=== PATIENT | female | born 1985 | race Two or more races ===

== ENCOUNTER 2018-01-09 00:17 | Emergency (ER) | payer MEDICAID ==
[~2018-01-09] VITALS: Ht 165.1 cm; Wt 113.4 kg
--- NOTE | 2018-01-09 00:49 | NUR ---
Dr. Radha SCHAFER MD at bedside for MSE.
[2018-01-09] MEDS ORDERED: ACETAMINOPHEN ES 500 MG TABLET ONE (00:59)
[2018-01-09] MEDS ORDERED: ACETAMINOPHEN ES 500 MG TABLET PO ONE (01:00)
[2018-01-09 01:06] VITALS: BP 118/64
--- NOTE | 2018-01-09 01:06 | NUR ---
Patient discharged to home in stable conditon. Written and verbal after care instructions given. Patient verbalizes understanding of instructions.
== END 2018-01-09 01:07 | disposition home or self-care (01) ==
LOC: ER 00:25
DX: H92.02 Otalgia, left ear (principal)
CPT/HCPCS: A4663; A9150

== ENCOUNTER 2018-06-13 00:31 | Emergency (ER) | END 2018-06-13 02:15 | disposition home or self-care (01) | DX: K80.70 Calculus of gallbladder and bile duct without cholecystitis without obstruction (principal); Z87.442 Personal history of urinary calculi | CPT/HCPCS: 36415; 76705; 80048; 80076; 83690; 84702; 85025; 96374; 96375; 99284; J1170; J1885; J2405 ==

== ENCOUNTER 2019-03-27 07:40 | Emergency (ER) | payer MEDICAID ==
[~2019-03-27] VITALS: Ht 165.1 cm; Wt 88.5 kg
[2019-03-27] MEDS ORDERED: HYDR-3326 PO (08:06)
--- NOTE | 2019-03-27 08:21 | NUR ---
at bedside to see and examine patient.
[2019-03-27] MEDS ORDERED: HYDROMORPHONE 1 MG/1 ML DISP.SYRIN IV ONE (08:30)
[2019-03-27] MEDS ORDERED: KETOROLAC TROMETHAMINE 30 MG INJ IVP ONE (08:30)
[2019-03-27] MEDS ORDERED: ONDANSETRON 4 MG/2 ML VIAL IV ONE (08:30)
[2019-03-27] MEDS ORDERED: IV NORMAL SALINE 1000 ML BAG IV ONE (08:30)
[2019-03-27] MEDS ORDERED: KETOROLAC TROMETHAMINE 30 MG INJ ONE (08:33)
[2019-03-27] MEDS ORDERED: HYDROMORPHONE 1 MG/1 ML DISP.SYRIN ONE (08:34)
[2019-03-27] MEDS ORDERED: ONDANSETRON 4 MG/2 ML VIAL ONE (08:34)
[2019-03-27 08:47] LABS: BASOPHILS % (AUTO) 0.3 % (0.0-2.0); EOSINOPHILS # (AUTO) 0.1 K/uL (0.0-0.7); EOSINOPHILS % (AUTO) 2.1 % (0.0-7.0); HEMATOCRIT 38.4 % (31.2-41.9); HEMOGLOBIN 12.7 g/dL (10.9-14.3); LYMPHOCYTES # (AUTO) 1.7 K/uL (20.0-40.0); LYMPHOCYTES % (AUTO) 23.6 % (20.5-51.5); MEAN CORPUSCULAR HEMOGLOBIN 30.2 uug (24.7-32.8); MEAN CORPUSCULAR HGB CONC 33 g/dL (32.3-35.6); MEAN CORPUSCULAR VOLUME 91.5 fL (75.5-95.3); MONOCYTES # (AUTO) 0.3 K/uL (2.0-10.0); MONOCYTES % (AUTO) 4.6 % (0.0-11.0); NEUTROPHILS # (AUTO) 4.9 K/uL (1.8-8.9); NEUTROPHILS % (AUTO) 69.4 % (38.5-71.5); PLATELET COUNT (AUTO) 169 K/uL (179-408)
[2019-03-27 08:56] LABS: CREATININE 0.7 mg/dL (0.6-1.3); POTASSIUM 4.3 mmol/L (3.5-5.1)
[2019-03-27 09:02] LABS: BILIRUBIN,DIRECT 0.1 mg/dL (0.0-0.2); BILIRUBIN,TOTAL 0.3 mg/dL (0.2-1.0); TOTAL PROTEIN, SERUM 6.1 g/dL (6.4-8.2)
--- NOTE | 2019-03-27 09:32 | NUR ---
dcd instructions given to patient who verbalized understanding., pt left room AAOX4. vitasls: 101/63 HR of 52 0/10 pain. no nausea well controlled no vomiting and pt. tolerating po intake. Addendum: 03/27/19 at 0934 by GMATEOS pt. accompanied by tate the whole time.
== END 2019-03-27 09:41 | disposition home or self-care (01) ==
LOC: ER 07:40
DX: K80.50 Calculus of bile duct without cholangitis or cholecystitis without obstruction (principal); Z79.899 Other long term (current) drug therapy
CPT/HCPCS: 36415; 80048; 80076; 83690; 84702; 85025; 96374; 96375; 99283; J1170; J1885; J2405; A4663; J7030

== ENCOUNTER 2019-08-02 13:59 | Emergency (ER) | payer MEDICAID ==
[~2019-08-02] VITALS: Ht 165.1 cm; Wt 54.4 kg
[2019-08-02] MEDS ORDERED: KETOROLAC TROMETHAMINE 15 MG INJ IVP ONE (14:30)
[2019-08-02] MEDS ORDERED: ONDANSETRON 4 MG/2 ML VIAL IV ONE (14:30)
[2019-08-02] MEDS ORDERED: KETOROLAC TROMETHAMINE 15 MG INJ ONE (14:35)
[2019-08-02] MEDS ORDERED: ONDANSETRON 4 MG/2 ML VIAL ONE (14:35)
[2019-08-02 14:57] LABS: BILIRUBIN,DIRECT 0.1 mg/dL (0.0-0.2); BILIRUBIN,TOTAL 0.2 mg/dL (0.2-1.0); CREATININE 0.8 mg/dL (0.6-1.3); POTASSIUM 3.9 mmol/L (3.5-5.1); TOTAL PROTEIN, SERUM 7.1 g/dL (6.4-8.2)
[2019-08-02 15:01] LABS: *BILIRUBIN,URIN NEGATIVE (NEGATIVE); *BLOOD, URINE NEGATIVE (NEGATIVE); *CLARITY,URINE CLEAR (CLEAR); *COLOR,URINE YELLOW (YELLOW); *KETONES,URINE NEGATIVE (NEGATIVE); *UROBILINOGEN,URINE 0.2 E.U./dl (NORMAL); LEUKOCYTE ESTERASE ,URINE NEGATIVE (NEGATIVE); NITRITE, URINE NEGATIVE (NEGATIVE); UGLUCOSE NEGATIVE (NEGATIVE)
[2019-08-02 15:11] LABS: BASOPHILS % (AUTO) 0.4 % (0.0-2.0); EOSINOPHILS # (AUTO) 0.1 K/uL (0.0-0.7); EOSINOPHILS % (AUTO) 2.1 % (0.0-7.0); HEMATOCRIT 41.2 % (31.2-41.9); HEMOGLOBIN 13.8 g/dL (10.9-14.3); LYMPHOCYTES # (AUTO) 2.7 K/uL (20.0-40.0); LYMPHOCYTES % (AUTO) 40.6 % (20.5-51.5); MEAN CORPUSCULAR HEMOGLOBIN 30.3 uug (24.7-32.8); MEAN CORPUSCULAR HGB CONC 33 g/dL (32.3-35.6); MEAN CORPUSCULAR VOLUME 90.8 fL (75.5-95.3); MONOCYTES # (AUTO) 0.4 K/uL (2.0-10.0); MONOCYTES % (AUTO) 5.7 % (0.0-11.0); NEUTROPHILS # (AUTO) 3.4 K/uL (1.8-8.9); NEUTROPHILS % (AUTO) 51.2 % (38.5-71.5); PLATELET COUNT (AUTO) 232 K/uL (179-408); RED BLOOD CELL COUNT(AUTO) 4.54 MIL/uL (3.63-4.92); WHITE BLOOD COUNT (AUTO) 6.7 K/uL (3.8-11.8)
[2019-08-02 15:11] LABS: *URINE HCG, QUAL NEGATIVE (NEGATIVE)
[2019-08-02 16:08] VITALS: BP 110/61
--- NOTE | 2019-08-02 16:08 | NUR ---
Patient discharged to home in stable conditon. Written and verbal after care instructions given. Patient verbalizes understanding of instructions.PT WALKS IN STEADY GAIT.
== END 2019-08-02 16:11 | disposition home or self-care (01) ==
LOC: ER 13:59
DX: K80.20 Calculus of gallbladder without cholecystitis without obstruction (principal)
CPT/HCPCS: 36415; 76705; 80048; 80076; 81001; 83690; 84703; 85025; 96374; 99284; J1885; J2405; A4663

== ENCOUNTER 2019-11-19 00:53 | Emergency (ER) | payer MEDICAID ==
[~2019-11-19] VITALS: Ht 165.1 cm; Wt 80.7 kg
[~2019-11-19 00:53] MED LIST: HYDR-3326 PO
[2019-11-19] MEDS ORDERED: METF-440 PO (01:07)
[2019-11-19] MEDS ORDERED: MULT-1275 PO (01:07)
--- NOTE | 2019-11-19 01:18 | NUR ---
Dr. Ye at bedside for MSE.
[2019-11-19] MEDS ORDERED: ONDANSETRON 4 MG/2 ML VIAL ONE (01:24)
[2019-11-19] MEDS ORDERED: KETOROLAC TROMETHAMINE 30 MG INJ ONE (01:24)
[2019-11-19] MEDS ORDERED: IV NORMAL SALINE 1000 ML BAG IV ONE (01:30)
[2019-11-19] MEDS ORDERED: ONDANSETRON 4 MG/2 ML VIAL IV ONE (01:30)
[2019-11-19] MEDS ORDERED: KETOROLAC TROMETHAMINE 15 MG INJ IVP ONE (01:30)
[2019-11-19 01:37] LABS: BASOPHILS % (AUTO) 0.6 % (0.0-2.0); EOSINOPHILS # (AUTO) 0.2 K/uL (0.0-0.7); EOSINOPHILS % (AUTO) 2.5 % (0.0-7.0); HEMATOCRIT 38.9 % (31.2-41.9); HEMOGLOBIN 13.2 g/dL (10.9-14.3); LYMPHOCYTES # (AUTO) 2.7 K/uL (20.0-40.0); LYMPHOCYTES % (AUTO) 37.2 % (20.5-51.5); MEAN CORPUSCULAR HEMOGLOBIN 30.8 uug (24.7-32.8); MEAN CORPUSCULAR HGB CONC 34 g/dL (32.3-35.6); MEAN CORPUSCULAR VOLUME 90.7 fL (75.5-95.3); MONOCYTES # (AUTO) 0.3 K/uL (2.0-10.0); MONOCYTES % (AUTO) 3.9 % (0.0-11.0); NEUTROPHILS # (AUTO) 4.1 K/uL (1.8-8.9); NEUTROPHILS % (AUTO) 55.8 % (38.5-71.5); PLATELET COUNT (AUTO) 188 K/uL (179-408); RED BLOOD CELL COUNT(AUTO) 4.28 MIL/uL (3.63-4.92); WHITE BLOOD COUNT (AUTO) 7.3 K/uL (3.8-11.8)
[2019-11-19 01:44] LABS: CARBON DIOXIDE 25 mmol/L (21-32); CHLORIDE 105 mmol/L (98-107); GLUCOSE 133 mg/dL (74-106); POTASSIUM 3.2 mmol/L (3.5-5.1); UREA NITROGEN, BLOOD 25 mg/dL (7-18)
[2019-11-19 01:50] LABS: ALANINE AMINOTRANSFERASE 19 U/L (14-59); ALKALINE PHOSPHATASE 54 U/L (50-136); ASPARTATE AMINOTRANSFERASE 15 U/L (15-37); BILIRUBIN,DIRECT 0.1 mg/dL (0.0-0.2); BILIRUBIN,TOTAL 0.4 mg/dL (0.2-1.0); LIPASE 166 U/L (73-393)
[2019-11-19] MEDS ORDERED: POTASSIUM CHLORIDE 20 MEQ TAB.PRT.SR PO ONE (02:15)
[2019-11-19] MEDS ORDERED: POTASSIUM CHLORIDE 20 MEQ TAB.PRT.SR ONE (02:20)
--- NOTE | 2019-11-19 02:25 | NUR ---
Patient discharged to home in stable condition. Written and verbal after care instructions given. Patient verbalizes understanding of instructions. Stressed follow up or return to ER for worsening s/s. Patient out of ER with steady gait, no acute signs of distress, VSS, all belongings taken, IV site discontinued.
[2019-11-19 02:26] VITALS: BP 110/60
== END 2019-11-19 02:27 | disposition home or self-care (01) ==
LOC: ER 00:55
DX: R10.2 Pelvic and perineal pain (principal); R11.0 Nausea; E87.6 Hypokalemia; E11.9 Type 2 diabetes mellitus without complications; Z79.84 Long term (current) use of oral hypoglycemic drugs
CPT/HCPCS: 36415; 80048; 80076; 83690; 84702; 85025; 96361; 96374; 96375; 99284; J1885; J2405; A4663; J7030

== ENCOUNTER 2019-12-14 22:32 | Emergency (ER) | payer MEDICAID ==
[~2019-12-14] VITALS: Ht 165.1 cm; Wt 72.6 kg
[~2019-12-14 22:32] MED LIST changes: -HYDR-3326 PO; +METF-440 PO; +MULT-1275 PO
--- NOTE | 2019-12-14 22:56 | NUR ---
Radiology notified that patient needs JERROD. Pending JERROD
--- NOTE | 2019-12-14 22:58 | NUR ---
Dr. Deluca at bedside for MSE.
[2019-12-14] MEDS ORDERED: ONDANSETRON 4 MG/2 ML VIAL IV ONE (23:00)
[2019-12-14] MEDS ORDERED: MORPHINE SULFATE 4 MG/1 ML DISP.SYRIN IV ONE (23:00)
[2019-12-14 23:04] LABS: *BILIRUBIN,URIN NEGATIVE (NEGATIVE); *BLOOD, URINE NEGATIVE (NEGATIVE); *CLARITY,URINE CLEAR (CLEAR); *COLOR,URINE YELLOW (YELLOW); *KETONES,URINE NEGATIVE (NEGATIVE); *UROBILINOGEN,URINE 0.2 E.U./dl (NORMAL); LEUKOCYTE ESTERASE ,URINE NEGATIVE (NEGATIVE); NITRITE, URINE NEGATIVE (NEGATIVE); PH,URINE 5.5 (5.0-8.0); UGLUCOSE NEGATIVE (NEGATIVE)
[2019-12-14 23:05] LABS: *URINE HCG, QUAL NEGATIVE (NEGATIVE)
[2019-12-14 23:19] LABS: POTASSIUM 4.3 mmol/L (3.5-5.1)
[2019-12-14 23:20] LABS: BASOPHILS % (AUTO) 0.7 % (0.0-2.0); EOSINOPHILS # (AUTO) 0.1 K/uL (0.0-0.7); EOSINOPHILS % (AUTO) 1.8 % (0.0-7.0); HEMOGLOBIN 14.5 g/dL (10.9-14.3); LYMPHOCYTES # (AUTO) 2.8 K/uL (20.0-40.0); LYMPHOCYTES % (AUTO) 39.5 % (20.5-51.5); MEAN CORPUSCULAR HEMOGLOBIN 30.5 uug (24.7-32.8); MEAN CORPUSCULAR HGB CONC 34 g/dL (32.3-35.6); MEAN CORPUSCULAR VOLUME 90.6 fL (75.5-95.3); MONOCYTES # (AUTO) 0.4 K/uL (2.0-10.0); MONOCYTES % (AUTO) 6.2 % (0.0-11.0); NEUTROPHILS # (AUTO) 3.7 K/uL (1.8-8.9); NEUTROPHILS % (AUTO) 51.8 % (38.5-71.5); PLATELET COUNT (AUTO) 217 K/uL (179-408); RED BLOOD CELL COUNT(AUTO) 4.75 MIL/uL (3.63-4.92); WHITE BLOOD COUNT (AUTO) 7.1 K/uL (3.8-11.8)
[2019-12-14] MEDS ORDERED: MORPHINE SULFATE 4 MG/1 ML DISP.SYRIN ONE (23:20)
[2019-12-14] MEDS ORDERED: ONDANSETRON 4 MG/2 ML VIAL ONE (23:21)
[2019-12-14 23:26] LABS: BILIRUBIN,DIRECT 0.1 mg/dL (0.0-0.2); BILIRUBIN,TOTAL 0.3 mg/dL (0.2-1.0); TOTAL PROTEIN, SERUM 7.3 g/dL (6.4-8.2)
--- NOTE | 2019-12-14 23:32 | NUR ---
JERROD Durham at bedside.
[2019-12-15] MEDS ORDERED: MORPHINE SULFATE 4 MG/1 ML DISP.SYRIN IV ONE (00:15)
[2019-12-15] MEDS ORDERED: MORPHINE SULFATE 4 MG/1 ML DISP.SYRIN ONE (00:28)
--- NOTE | 2019-12-15 00:50 | NUR ---
Dr. Deluca performed pelvic exam. Chaperoned by Mitchell ACEVEDO.
--- NOTE | 2019-12-15 01:10 | NUR ---
Patient cleared for DC. Patient discharged to home in stable condition. Written and verbal after care instructions given. Patient verbalizes understanding of instructions. Stressed follow up or return to ER for worsening s/s. IV removed. Catheter intact and site benign. Pressure and 4x4 gauze applied to site. No bleeding noted. Pt discharged to home in stable condition. Ambulated out of ER in steady gait. Partner will take patient home
[2019-12-15 01:37] VITALS: BP 101/70
== END 2019-12-15 01:10 | disposition home or self-care (01) ==
LOC: ER 22:33
DX: K80.20 Calculus of gallbladder without cholecystitis without obstruction (principal); Z87.891 Personal history of nicotine dependence
CPT/HCPCS: 36415; 76705; 80048; 80076; 81001; 83690; 84703; 85025; 85730; 86850; 86900; 86901; 96374; 96375; 99284; J2270; J2405; A4663

== ENCOUNTER 2020-04-20 10:28 | Emergency (ER) | payer MEDICAID ==
[~2020-04-20] VITALS: Ht 165.1 cm; Wt 86.2 kg
--- NOTE | 2020-04-20 10:50 | NUR ---
pt already involved jethro.
--- NOTE | 2020-04-20 10:57 | NUR ---
Patient discharged to home in stable condition. Written and verbal after care instructions given. Patient verbalizes understanding of instructions. Stressed follow up or return to ER for worsening s/s.
== END 2020-04-20 10:57 | disposition home or self-care (01) ==
LOC: ER 10:28
DX: S00.83XA Contusion of other part of head, initial encounter (principal); Y04.2XXA Assault by strike against or bumped into by another person, initial encounter; Y92.89 Other specified places as the place of occurrence of the external cause; S43.102A Unspecified dislocation of left acromioclavicular joint, initial encounter; S40.022A Contusion of left upper arm, initial encounter; S03.40XA Sprain of jaw, unspecified side, initial encounter; Z33.1 Pregnant state, incidental
CPT/HCPCS: A4663

== ENCOUNTER 2024-03-23 16:42 | Emergency (ER) | payer MEDICAID, OTHER ==
[~2024-03-23] VITALS: Ht 165.1 cm; Wt 97.5 kg
[~2024-03-23 16:42] MED LIST changes: +CEPH500T PO; +DICY20TA11 PO; +HYDR-4209 PO; +ONDA4TAB5 PO; +SULF1TAB48 PO
[2024-03-23] MEDS ORDERED: ASPIRIN 81 MG TAB.CHEW ONE (18:41)
[2024-03-23] MEDS ORDERED: CLONAZEPAM 0.5 MG TABLET ONE (18:42)
[2024-03-23] MEDS ORDERED: HYDROCODONE/APAP 5-325MG TABLET ONE (18:43)
[2024-03-23] MEDS: ASPIRIN 81 MG TAB.CHEW PO ONE (18:46)
[2024-03-23] MEDS: CLONAZEPAM 0.5 MG TABLET PO ONE (18:46)
[2024-03-23] MEDS: HYDROCODONE/APAP 5-325MG TABLET PO ONE (18:47)
[2024-03-23 18:58] LABS: BASOPHILS # (AUTO) 0.1 K/UL (0.0-0.2); CALCIUM 8.7 mg/dL (8.5-10.1); CARBON DIOXIDE 23 mmol/L (21-32); CHLORIDE 104 mmol/L (98-107); CREATININE 0.8 mg/dL (0.6-1.3); EOSINOPHILS # (AUTO) 0.2 K/uL (0.0-0.7); EOSINOPHILS % (AUTO) 2.5 % (0.0-7.0); GLUCOSE 93 mg/dL (74-106); HEMATOCRIT 39.7 % (31.2-41.9); HEMOGLOBIN 13.4 g/dL (10.9-14.3); LYMPHOCYTES # (AUTO) 2.6 K/uL (0.8-4.8); LYMPHOCYTES % (AUTO) 35.4 % (20.5-51.5); MEAN CORPUSCULAR HEMOGLOBIN 29.5 uug (24.7-32.8); MEAN CORPUSCULAR HGB CONC 34 g/dL (32.3-35.6); MEAN CORPUSCULAR VOLUME 87.3 fL (75.5-95.3); MONOCYTES # (AUTO) 0.4 K/uL (0.1-1.30); MONOCYTES % (AUTO) 5.2 % (0.0-11.0); NEUTROPHILS # (AUTO) 4.2 K/uL (1.8-8.9); NEUTROPHILS % (AUTO) 55.9 % (38.5-71.5); PLATELET COUNT (AUTO) 242 K/uL (179-408); POTASSIUM 3.8 mmol/L (3.5-5.1); RED BLOOD CELL COUNT(AUTO) 4.54 MIL/uL (3.63-4.92); RED CELL DISTRIBUTION WIDTH 13.8 % (12.3-17.7); SODIUM SERUM 139 mmol/L (136-145); UREA NITROGEN, BLOOD 7 mg/dL (7-18); WHITE BLOOD COUNT (AUTO) 7.4 K/uL (3.8-11.8)
[2024-03-23 19:12] LABS: ALANINE AMINOTRANSFERASE 27 U/L (14-59); ALBUMIN 3.6 g/dL (3.4-5.0); ALKALINE PHOSPHATASE 73 U/L (50-136); ASPARTATE AMINOTRANSFERASE 18 U/L (15-37); BILIRUBIN,DIRECT 0.1 mg/dL (0.0-0.2); BILIRUBIN,TOTAL 0.3 mg/dL (0.2-1.0); NT-PRO BNP 35 pg/mL (0-125)
[2024-03-23] MEDS ORDERED: CLON0.5T4 PO (19:35)
[2024-03-23 19:56] VITALS: BP 109/74; TEMP 98.5; O2SAT 95
== END 2024-03-23 19:40 | disposition home or self-care (01) ==
LOC: MERGE 16:46 → ER 16:46
DX: F41.1 Generalized anxiety disorder (principal); R07.89 Other chest pain; F32.A Depression, unspecified; F17.290 Nicotine dependence, other tobacco product, uncomplicated; Z90.49 Acquired absence of other specified parts of digestive tract; Z88.8 Allergy status to other drugs, medicaments and biological substances
CPT/HCPCS: 36415; 71045; 84484; 85025; A4606; A4663